=== PATIENT | female | born 1975 | race African-American/Black ===

== ENCOUNTER 2019-09-28 16:12 | Inpatient (IN) | payer OTHER ==
[~2019-09-28] VITALS: Ht 170.2 cm; Wt 81.2 kg
[2019-09-28 16:13] VITALS: BP 192/102
--- NOTE | 2019-09-28 16:51 | NUR ---
LAB PAGED FOR BLOOD DRAW.
[2019-09-28 18:15] LABS: ABSOLUTE NEUTROPHILS 6.9 thou/uL (1.4-8.2); BASOPHILS 0.9 % (0.0-2.0); EOSINOPHILS 3.7 % (0.0-3.0); HEMATOCRIT 30.9 % (37.0-47.0); HEMOGLOBIN 9.9 gm/dL (12.0-15.0); LYMPHOCYTES 11.1 % (24.0-44.0); MCH 26.1 pg (26.0-34.0); MCHC 32.2 g/dL (28.0-37.0); MONOCYTES 7.6 % (1.0-8.0); PLATELET COUNT 387 thou/uL (150-400); POLYS 76.7 % (36.0-66.0); RBC 3.81 mil/uL (4.20-5.00); RDW 17.3 % (10.5-14.5)
[2019-09-28 18:25] LABS: CALCIUM 9.2 mg/dL (8.5-10.1); CREATININE 2.9 mg/dL (0.6-1.0)
[2019-09-28 18:26] LABS: POTASSIUM 2.9 mmol/L (3.5-5.1)
[2019-09-28 18:31] LABS: TOTAL BILIRUBIN 0.2 mg/dL (<0.1-1.0); TOTAL PROTEIN 7.8 g/dL (6.4-8.2)
[2019-09-28 21:17] VITALS: BP 195/104
[2019-09-28 22:11] VITALS: BP 218/104
--- NOTE | 2019-09-29 02:09 | NUR ---
ASSUMED CARE FROM ED PT HAVING SEVERE N/S AND BP ELEVATED UPON ARRIVAL TO UNIT PT PLACED ON MACHINE BRUSH MAKER SHOWS ST 105 . ASSESSMENT COMPLETED ABD DATA BASE COMPLETED. SECOND IV PLACED TO ADMINISTER IV K+ . HOURLY SIGN LANGUAGE INTERPRETER OSMAR NOTIFED OF PT STATUS PT MEDICATED PRESCRIBED. PT HAVING MUCUS NAD WATERY STOOL , SAMPLE SEMT TO LAB. WILL CONINTUE TO MONITOR AND REPORT CHANGES OR ABNORMAL FINDINGS.
[2019-09-29 04:42] VITALS: BP 215/117
[2019-09-29 05:49] LABS: HEMATOCRIT 30.9 % (37.0-47.0); HEMOGLOBIN 9.7 gm/dL (12.0-15.0); MCH 25.8 pg (26.0-34.0); MCHC 31.4 g/dL (28.0-37.0); MCV 82.3 fL (80.0-100.0); RBC 3.76 mil/uL (4.20-5.00); RDW 16.9 % (10.5-14.5); WBC 7.6 thou/uL (4.0-11.0)
[2019-09-29 06:19] LABS: CALCIUM 8.6 mg/dL (8.5-10.1); CREATININE 2.7 mg/dL (0.6-1.0); POTASSIUM 3.5 mmol/L (3.5-5.1)
[2019-09-29 06:27] VITALS: BP 177/102
[2019-09-29 08:30] VITALS: BP 195/105
--- NOTE | 2019-09-29 10:58 | NUR ---
[facility] SPOKE WITH KAI IN INTAKE SHE RECEIVED UPDATE. DP TO FOLLOW.
[2019-09-29 13:00] VITALS: BP 164/97
--- NOTE | 2019-09-29 14:55 | NUR ---
AAOX4. SOMNOLENT. ST PER TELE. DR. MUHAMMAD SEES. HTN NOTED. LABS NOTED. CDT ISOLATION; CDT PENDING. WILL CONTINUE TO FOLLOW CLOSELY.
--- NOTE | 2019-09-29 16:09 | NUR ---
Met with patient she admits with N/V. Patient resides at home with aunt and her partner. All needs on one level. Someone is with patient during the day. Patient was at [facility]. She rec LBKA and transferred to [facility] at ar from hospital. She subsequently [facility], has been home approx one week. She [email or web address]. She reports nephrology phys just told her she may no longer need dialysis. She is hopeful to dc home with no dialysis needs. She has all DME from [facility] as needed. W/C walker and reports no need for sliding board. Patient plans dc home with HH once stable. Notified [facility] patient inpatient.
[2019-09-29 17:04] VITALS: BP 165/83
[2019-09-29 18:43] VITALS: BP 144/76
--- NOTE | 2019-09-30 04:41 | NUR ---
ASSESSMENT: PT REMAIN ALERT AND ORIENT TIMES FOUR. LEFT BKA INTACT. C/O PAIN IN ABD, LEG AND DIALYSIS CATH SITE. NORCO GIVEN WITH PARTIAL RELIEF. TESSION ESTHER ORDERED FOR DRY, HACKY COUGH. VSS, AFEBRILE. PADILLA PATENT WITH ADEQUATE UO. NO BM THIS SHIFT. 1030 VANCO TROUGH ORDERED FOR TODAY. SR PER MONITOR, SLOW PROGRESS TOWARDS DC GOALS, WILL CONTINUE TO MONITOR.
[2019-09-30 05:30] LABS: HEMOGLOBIN 8.6 gm/dL (12.0-15.0); MCH 26.4 pg (26.0-34.0); MCHC 31.8 g/dL (28.0-37.0); MCV 82.9 fL (80.0-100.0); RBC 3.25 mil/uL (4.20-5.00); RDW 16.8 % (10.5-14.5); WBC 6.5 thou/uL (4.0-11.0)
[2019-09-30 05:44] LABS: ALBUMIN 2.6 g/dL (3.4-5.0); CALCIUM 8.2 mg/dL (8.5-10.1); CREATININE 2.9 mg/dL (0.6-1.0); PHOSPHORUS 4.3 mg/dL (2.5-4.9); POTASSIUM 3.5 mmol/L (3.5-5.1)
[2019-09-30 07:15] VITALS: BP 181/99
--- NOTE | 2019-09-30 08:35 | HC ---
[facility] [address] [place] [address] CONSULTATION Name: NIKO MOREJON Room #: 202-P ADM IN M.R.#: [id number] Admission: 09/28/19 Attend Phys: Jared Garcia MD Discharge: Date of : 73 Report #: [id number] THIS REPORT FOR: //name// CC: [facility] physician/PCP Jared Garcia REASON FOR CONSULTATION: Requirement for dialysis. REASON FOR PRESENTATION: Nausea, vomiting. HISTORY OF PRESENT ILLNESS: A 44-year-old who has been on dialysis for the last month. She moved from [place]. The details of her renal history are not that great. She is known to be diabetic and hypertensive. She has left below-knee amputation due to osteomyelitis. She presented to the Emergency Room reporting nausea, vomiting, and diarrhea. She denies abdominal pain. She tells me that she had an acute kidney injury event while up [place] in [facility]. She was having issues with her left lower extremity osteomyelitis and had a left below-knee amputation and required dialysis ever since. She is utilizing a right IJ catheter. She last dialyzed on Friday. Transportation had not picked her up for her dialysis on Friday and she missed her dialysis on Friday. Surprisingly, her BUN and creatinine during this hospital stay showed the values of 23 and 2.7. She made about 750 mL of urine. PAST MEDICAL HISTORY: 1. Hypertension. 2. Diabetes mellitus for 20 years. 3. Left below-knee amputation. 4. Right IJ tunneled catheter. 5. Osteomyelitis of the left foot. SOCIAL HISTORY: She denies drug or alcohol abuse. FAMILY HISTORY: Significant for diabetes mellitus and hypertension. MEDICATIONS: The patient is not sure about her home medications and those have not been reconciled unfortunately. ALLERGIES: None. REVIEW OF SYSTEMS: GENERAL: Significant for weakness. No chills, but significant fever. CARDIOVASCULAR: No chest pain or palpitation. PULMONARY: No cough or hemoptysis. GASTROINTESTINAL: Significant for nausea, vomiting, and diarrhea. GENITOURINARY: Occasional urinary retention. [facility] [address] [place] [address] CONSULTATION Name: ARNAV MOREJONDARWIN Morocho Room #: 202-P [facility] IN M.R.#: [id number] Admission: 09/28/19 Attend Phys: Jared Garcia MD Discharge: Date of : 73 Report #: [id number] MUSCULOSKELETAL: No back pain, no morning stiffness. PHYSICAL EXAMINATION: GENERAL: She is alert, oriented, in no apparent distress. VITAL SIGNS: Blood pressure is 177/102, temperature is 37.1, pulse rate is 100. HEAD AND NECK: No jugular venous distention. There is a right IJ tunneled catheter. CHEST: No crackles. CARDIOVASCULAR: Regular with no rub detected. ABDOMEN: Soft, nontender with no hepatosplenomegaly. LOWER EXTREMITIES: Left below-knee amputation. LABORATORY VALUES: Revealed hemoglobin of 9.7. Sodium of 136 and potassium of 3.5, this was low at 2.9. BUN is 22, creatinine is 2.9. IMPRESSION AND PLAN: 1. Acute kidney injury. 2. Gastrointestinal illness. 3. Hypertensive urgency. 4. Hypokalemia. 5. Potassium has rectified. 6. Discontinue IV fluid. 7. Needs better blood pressure control. 8. The patient seems to be regaining her kidney function with some improvement in her renal parameters. No dialysis is indicated, pending further renal recovery. 9. Blood sugar control. 10. GI workup. <ELECTRONICALLY SIGNED> By: Fran Nolan MD 09/30/19 0835 0845 1203 Fran Nolan MD /nt
[2019-09-30 12:30] VITALS: BP 178/90
[2019-09-30 15:40] VITALS: BP 165/96
--- NOTE | 2019-09-30 17:49 | NUR ---
PT ALERT AND ORIENTED. HAD HIGH BP THIS SHIFT. DR. CARTWRIGHT NOTIFIED. ORDERS RECEIVED. PRN PAIN MED GIVEN WITH PARTIAL RELIEF. PT HAD NUMEROUS LOOSE STOOL THIS SHIFT. PRN IMMODIUM GIVEN. CRITICAL LAB RESULTS CALLED IN TO THE PHARMACY. ORDERS NOTED. WILL CONTINUE TO MONITOR.
[2019-09-30 20:30] VITALS: BP 168/90
[2019-09-30 22:06] VITALS: BP 173/92
--- NOTE | 2019-10-01 04:01 | NUR ---
PATIENT TRANSFERRED TO UNIT FROM CCU. DENIES N/V. C/O PAIN X1, MED GIVEN. ACCUCHECK WAS 155, 3 UNITS LISPRO GIVEN. HAS TESSIO OF DIALYSIS, M/W/F. HAS L BKA BUT GETS UP TO BSC WITH ASSIST OF ONE. SLEPT OFF AND ON DURING NIGHT.
[2019-10-01 04:10] VITALS: BP 159/78
[2019-10-01 06:55] LABS: ALBUMIN 2.4 g/dL (3.4-5.0); CALCIUM 8.3 mg/dL (8.5-10.1); PHOSPHORUS 4.5 mg/dL (2.5-4.9); POTASSIUM 3.2 mmol/L (3.5-5.1)
[2019-10-01 08:29] VITALS: BP 167/79
[2019-10-01] MEDS ORDERED: COZAAR100 MG PO (12:31)
[2019-10-01] MEDS ORDERED: NORVASC10 MG PO (12:31)
[2019-10-01] MEDS ORDERED: AUGMENTIN 875-1 EACH PO (12:32)
--- NOTE | 2019-10-01 13:44 | NUR ---
met with patient she is to dc home with resumed h[facility] with [facility]. she need [facility] van for home. dc process planner in process of arranging. She iwll alert Rn of timeframe. Verified address no further needs.
[2019-10-01 13:51] VITALS: BP 167/79
--- NOTE | 2019-10-01 14:22 | NUR ---
[facility]SUMMARY [facility] SPOKE WITH THERON IN INTAKE SHE WILL NOTIFY PT TIME OF VISIT. PT DID NOT HAVE TRANSPORT HOME SET UP TRANSPORT WITH [facility] WILL PICK PT UP AT 1600 TODAY.
--- NOTE | 2019-10-01 16:30 | NUR ---
Assumed care of pt at 0700. Pt a&ox4. Dialysis catheter removed by PELON zhang. SBA with walker to bedside commode. Prn pain meds administered per pt request. Transport arranged for pt to go home. Pt discharging with home health.
== END 2019-10-01 16:58 | disposition home health service (06) | DRG 682 ==
LOC: ER 16:12 → 2N 20:32 → EROBS 20:32 → 2N 21:16 → 4S 09-30 20:54
PROVIDERS: Emergency Medicine; Hospitalist; Nurse Practitioner Family; ADMIT Hospitalist
PROC: 0JPT3XZ Removal of Tunneled Vascular Access Device from Trunk Subcutaneous Tissue and Fascia, Percutaneous Approach (ICD-10-PCS; principal; 2019-10-01)
DX: N17.9 Acute kidney failure, unspecified (principal); J18.9 Pneumonia, unspecified organism; I12.0 Hypertensive chronic kidney disease with stage 5 chronic kidney disease or end stage renal disease; N18.6 End stage renal disease; E86.0 Dehydration; R33.9 Retention of urine, unspecified; Z99.2 Dependence on renal dialysis; E11.22 Type 2 diabetes mellitus with diabetic chronic kidney disease; E11.51 Type 2 diabetes mellitus with diabetic peripheral angiopathy without gangrene; I16.0 Hypertensive urgency; E87.6 Hypokalemia; Z86.73 Personal history of transient ischemic attack (TIA), and cerebral infarction without residual deficits; Z89.512 Acquired absence of left leg below knee; Z82.49 Family history of ischemic heart disease and other diseases of the circulatory system; Z83.3 Family history of diabetes mellitus; Z79.899 Other long term (current) drug therapy
CPT/HCPCS: 10081; 10102

== ENCOUNTER 2019-10-03 12:19 | Emergency (ER) | payer OTHER ==
[~2019-10-03] VITALS: Ht 170.2 cm; Wt 82.1 kg
[~2019-10-03 12:19] MED LIST: AUGMENTIN 875-1 EACH PO; COZAAR100 MG PO; NORVASC10 MG PO
[2019-10-03 13:44] LABS: CALCIUM 8.6 mg/dL (8.5-10.1); CREATININE 2.7 mg/dL (0.6-1.0); POTASSIUM 4.1 mmol/L (3.5-5.1)
[2019-10-03 13:49] LABS: ALBUMIN 2.6 g/dL (3.4-5.0); TOTAL BILIRUBIN 0.3 mg/dL (<0.1-1.0); TOTAL PROTEIN 6.8 g/dL (6.4-8.2)
[2019-10-03 14:06] LABS: ABSOLUTE NEUTROPHILS 3.2 thou/uL (1.4-8.2); BASOPHILS 1.1 % (0.0-2.0); EOSINOPHILS 0.5 % (0.0-3.0); HEMATOCRIT 32.1 % (37.0-47.0); HEMOGLOBIN 10.2 gm/dL (12.0-15.0); LYMPHOCYTES 29.8 % (24.0-44.0); MCH 25.5 pg (26.0-34.0); MCHC 31.7 g/dL (28.0-37.0); MCV 80.4 fL (80.0-100.0); MONOCYTES 10.2 % (1.0-8.0); PLATELET COUNT 330 thou/uL (150-400); POLYS 58.4 % (36.0-66.0); RBC 3.99 mil/uL (4.20-5.00); RDW 17.5 % (10.5-14.5); WBC 5.5 thou/uL (4.0-11.0)
[2019-10-03 14:20] LABS: MAGNESIUM 1.6 mg/dL (1.8-2.4); TROPONIN-I 0.06 ng/mL (<0.06)
[2019-10-03] MEDS ORDERED: ONDANSETRON HCL4 M2 PO (16:16)
[2019-10-03] MEDS ORDERED: CEFDINIR300 MG PO (16:16)
[2019-10-03] MEDS ORDERED: MUCINEX600 MG PO (16:17)
[2019-10-03 16:19] LABS: URINE BILIRUBIN NEGATIVE (Negative); URINE BLOOD 2+ (Negative); URINE CLARITY CLEAR; URINE COLOR YELLOW; URINE GLUCOSE-RANDOM* 1+ (Negative); URINE KETONES NEGATIVE (Negative); URINE LEUKOCYTES-REFLEX NEGATIVE (Negative); URINE NITRITE-REFLEX NEGATIVE (Negative); URINE PROTEIN (DIPSTICK) 3+ (Negative); URINE SPECIFIC GRAVITY 1.015 (1.005-1.035); URINE UROBILINOGEN 0.2 E.U./dl (0.2-1.0)
[2019-10-03 16:28] LABS: URINE RBC 0-2 Rare /HPF (0-2)
[2019-10-03 16:29] LABS: BACTERIA-REFLEX 1-9 Few /HPF (None Seen); CASTS None Seen /LPF (None Seen); CRYSTALS None Seen /LPF (None Seen); SQUAMOUS 0-3 Few /LPF (0-3); URINE WBC-REFLEX None Seen /HPF (0-5)
[2019-10-03 17:16] VITALS: BP 179/81
--- NOTE | 2019-10-04 15:00 | EKG ---
[place] [address] [facility] [place] [address] ELECTROCARDIOGRAM REPORT Name: PARKER MOREJONTRUNG Morocho Room #: DEP [facility]#: [id number] Admission: 10/03/19 Attend Phys: Discharge: 10/03/19 Date of : 73 Report #: [id number] THIS REPORT FOR: //name// [facility] ED Test Date: 2019-10-03 Test Time: 13:40:13 Pat Name: NIKO MOREJON Department: Room: Gender: F Customs Entry Clerk: paul : 1975 Requested By: Niranjan Cruz Order Number: [id number] MD: Pawel Stapleton Measurements Intervals [place] Rate: 102 P: 46 CO: 132 QRS: 105 QRSD: 96 T: 79 QT: 367 QTc: 479 Interpretive Statements Sinus tachycardia Right axis deviation Borderline low voltage, extremity leads No previous ECG available for comparison Electronically Signed On 10-04-2019 14:59:58 HEALTHCARE EDUCATOR by Pawel Stapleton [email or web address] <ELECTRONICALLY SIGNED> By: Pawel Stapleton MD 10/04/19 1459 1340 1340 Pawel Stapleton MD /STEF
[2019-10-05] MEDS ORDERED: PERCOCET 10-321 EAC1 PO (17:20)
[2019-10-06] MEDS ORDERED: K-DUR 20 MEQ T20 MEQ PO (12:04)
[2019-10-06] MEDS ORDERED: PROTONIX40 M2 PO (12:04)
[2019-10-06] MEDS ORDERED: REGLAN10 MG PO (12:04)
[2019-10-06] MEDS ORDERED: REGLAN 10 MG TA10 MG PO (12:04)
== END 2019-10-03 17:17 | disposition home or self-care (01) ==
LOC: ER 12:19
PROVIDERS: Physician Assistant
DX: J02.9 Acute pharyngitis, unspecified (principal); R10.84 Generalized abdominal pain; E11.22 Type 2 diabetes mellitus with diabetic chronic kidney disease; I12.0 Hypertensive chronic kidney disease with stage 5 chronic kidney disease or end stage renal disease; N18.6 End stage renal disease; Z99.2 Dependence on renal dialysis; Z86.73 Personal history of transient ischemic attack (TIA), and cerebral infarction without residual deficits; Z89.512 Acquired absence of left leg below knee

== ENCOUNTER 2019-10-08 12:07 | Emergency (ER) | payer OTHER ==
[~2019-10-08] VITALS: Ht 170.2 cm; Wt 81.7 kg
[~2019-10-08 12:07] MED LIST changes: +CEFDINIR300 MG PO; +K-DUR 20 MEQ T20 MEQ PO; +MUCINEX600 MG PO; +ONDANSETRON HCL4 M2 PO; +PERCOCET 10-321 EAC1 PO; +PROTONIX40 M2 PO; +REGLAN 10 MG TA10 MG PO; +REGLAN10 MG PO
[2019-10-08 14:15] LABS: ABSOLUTE NEUTROPHILS 5.7 thou/uL (1.4-8.2); BASOPHILS 1.3 % (0.0-2.0); EOSINOPHILS 2.4 % (0.0-3.0); HEMATOCRIT 31.9 % (37.0-47.0); HEMOGLOBIN 10.4 gm/dL (12.0-15.0); LYMPHOCYTES 27.3 % (24.0-44.0); MCHC 32.5 g/dL (28.0-37.0); MCV 79.9 fL (80.0-100.0); MONOCYTES 6.7 % (1.0-8.0); PLATELET COUNT 517 thou/uL (150-400); POLYS 62.3 % (36.0-66.0); RBC 3.99 mil/uL (4.20-5.00); RDW 17.2 % (10.5-14.5); WBC 9.2 thou/uL (4.0-11.0)
[2019-10-08 14:22] LABS: CALCIUM 8.3 mg/dL (8.5-10.1); CREATININE 2.1 mg/dL (0.6-1.0); POTASSIUM 3.9 mmol/L (3.5-5.1)
[2019-10-08 14:28] LABS: TOTAL BILIRUBIN 0.2 mg/dL (<0.1-1.0); TOTAL PROTEIN 6.1 g/dL (6.4-8.2)
[2019-10-08] MEDS ORDERED: MUCINEX600 MG PO (15:16)
[2019-10-08] MEDS ORDERED: COZAAR100 MG PO (15:16)
[2019-10-08] MEDS ORDERED: NORVASC10 MG PO (15:16)
[2019-10-08] MEDS ORDERED: ZOFRAN ODT4 MG PO (15:16)
[2019-10-08 16:30] VITALS: BP 185/90
== END 2019-10-08 16:30 | disposition home or self-care (01) ==
LOC: ER 12:07
PROVIDERS: Emergency Medicine
DX: I10 Essential (primary) hypertension (principal); R11.2 Nausea with vomiting, unspecified; E11.9 Type 2 diabetes mellitus without complications; Z86.73 Personal history of transient ischemic attack (TIA), and cerebral infarction without residual deficits; Z86.14 Personal history of Methicillin resistant Staphylococcus aureus infection; Z88.5 Allergy status to narcotic agent

== ENCOUNTER 2019-11-03 18:47 | Inpatient (IN) | payer OTHER ==
[~2019-11-03] VITALS: Ht 152.4 cm; Wt 89.7 kg
[~2019-11-03 18:47] MED LIST changes: +ZOFRAN ODT4 MG PO
[2019-11-03 18:48] VITALS: BP 157/81
[2019-11-03 20:50] LABS: ABSOLUTE NEUTROPHILS 6.5 thou/uL (1.4-8.2); BASOPHILS 0.6 % (0.0-2.0); EOSINOPHILS 2.7 % (0.0-3.0); HEMATOCRIT 25.1 % (37.0-47.0); LYMPHOCYTES 27.7 % (24.0-44.0); MCH 25.6 pg (26.0-34.0); MCHC 32.1 g/dL (28.0-37.0); MCV 79.8 fL (80.0-100.0); MONOCYTES 8.8 % (1.0-8.0); PLATELET COUNT 464 thou/uL (150-400); POLYS 60.2 % (36.0-66.0); RBC 3.14 mil/uL (4.20-5.00); RDW 18.2 % (10.5-14.5); WBC 10.8 thou/uL (4.0-11.0)
[2019-11-03 21:25] LABS: CALCIUM 7.9 mg/dL (8.5-10.1); CREATININE 2.3 mg/dL (0.6-1.0)
[2019-11-03 21:33] LABS: TOTAL BILIRUBIN 0.1 mg/dL (<0.1-1.0)
[2019-11-03 23:23] LABS: URINE BILIRUBIN NEGATIVE (Negative); URINE BLOOD TRACE (Negative); URINE CLARITY CLEAR; URINE COLOR YELLOW; URINE GLUCOSE-RANDOM* 1+ (Negative); URINE KETONES NEGATIVE (Negative); URINE LEUKOCYTES-REFLEX NEGATIVE (Negative); URINE NITRITE-REFLEX NEGATIVE (Negative); URINE PROTEIN (DIPSTICK) 3+ (Negative); URINE UROBILINOGEN 0.2 E.U./dl (0.2-1.0)
[2019-11-03 23:32] LABS: BACTERIA-REFLEX 1-9 Few /HPF (None Seen); CASTS None Seen /LPF (None Seen); CRYSTALS None Seen /LPF (None Seen); SQUAMOUS 0-3 Few /LPF (0-3); URINE RBC 0-2 Rare /HPF (0-2); URINE WBC-REFLEX None Seen /HPF (0-5)
--- NOTE | 2019-11-03 23:36 | NUR ---
MIDLINE PROCEDURE. RISK, BENEFITS, AND ALTERNATIVE TREATMENT DISCUSSED WITH THEPATIENT PRIOR TO THE PROCEDURE. TEACHING GIVEN RELATED TO POSSIBLE COMPLICATIONS SUCH BLEEDING, INFECTION, CLOT OR VESSEL PERFORATION. INSTRUCTION GIVEN RELATED TO PREVENTION OF INFECTION. PATIENT VOICES UNDERSTANDING TO THE ABOVE AND GIVES VERBAL CONSENT. ORDER VERIFIED WITH ED PHYSICIAN AND TIME OUT COMPLETED WITH TRESSA MCCARTHY AT 2100. MIDLINE PLACED TO RUE CEPHALIC VEIN. ONE STICK AND NO COMPLICATIONS. PATIENT TOLERATED WELL. MIDLINE TRIMMED TO 14 CM. AND EXTERNAL =0CM.
[2019-11-04 09:34] VITALS: BP 178/97
[2019-11-04 10:33] VITALS: BP 179/75
[2019-11-04 11:00] VITALS: BP 205/92
[2019-11-04 16:05] VITALS: BP 183/83
--- NOTE | 2019-11-04 16:32 | NUR ---
Patient admitted from ED at 1045. Patient admitted with Pneumionia and pain related to fall. Patient fell prior to coming to ED per EMS. She fell on her left total knee amputation which was completed in September,. STAT order of Clonidine 0.1mg po given for elevated blood pressure. Patient verbalized that her blood pressure "always runs high." She was asymptomatic with this hypertension. Patient has been tolerating IV Antibiotics well. She is upset because she has been placed on a Renal Diet. Will continue to monitor.
[2019-11-04 20:00] VITALS: BP 176/84
[2019-11-05 00:10] LABS: GLYCOHEMOGLOBIN (HGB A1C) 6.5 % (4.8-5.6)
--- NOTE | 2019-11-05 02:31 | NUR ---
ASSUMED CARE OF PT AT 1900HRS. PT IS AOX4 AND LETS NEEDS BE KNOWN. FALL PRECAUTION IN PLACE. ABX TREATMENT CONTINUED. PT REPORTED SOME PAIN AND PRN MEDS WERE USED. PT USED BTHE BEDPAIN THIS SHIFT. PT WAS ABLE TO GET COMFORTABLE AND SLEEP PART OF THE SHIFT. VSS AND NO S/S OF ACUTE DISTRESS. WILL CONTINUE TO MONITOR.
[2019-11-05 04:09] VITALS: BP 183/83
[2019-11-05 06:04] VITALS: BP 163/72
[2019-11-05 07:50] VITALS: BP 185/75
[2019-11-05 08:43] LABS: ABSOLUTE NEUTROPHILS 7.6 thou/uL (1.4-8.2); BASOPHILS 0.7 % (0.0-2.0); HEMATOCRIT 26.4 % (37.0-47.0); HEMOGLOBIN 8.5 gm/dL (12.0-15.0); LYMPHOCYTES 19.5 % (24.0-44.0); MCH 25.5 pg (26.0-34.0); MCHC 32.2 g/dL (28.0-37.0); MCV 79.3 fL (80.0-100.0); MONOCYTES 7.1 % (1.0-8.0); PLATELET COUNT 468 thou/uL (150-400); POLYS 69.7 % (36.0-66.0); RBC 3.33 mil/uL (4.20-5.00)
[2019-11-05 08:59] LABS: ALBUMIN 1.9 g/dL (3.4-5.0); CALCIUM 8.3 mg/dL (8.5-10.1); CREATININE 2.4 mg/dL (0.6-1.0); MAGNESIUM 1.7 mg/dL (1.8-2.4); POTASSIUM 4.6 mmol/L (3.5-5.1); TOTAL BILIRUBIN 0.2 mg/dL (<0.1-1.0); TOTAL PROTEIN 6.3 g/dL (6.4-8.2)
--- NOTE | 2019-11-05 10:23 | NUR ---
Pt admit d/t diarrhea, chills, cough. Previous fall at home and hematemesis. Hx T2DM, left BKA, CKD with previous hemodialysis, HTN, HLD. Admitted 1 month ago and had EGD w/ diabetic gastroparesis dx. GI following. CXR revealed PNA. Previous RD diet education on DM gastroparesis and included basic guidelines, but Pt denied full DM diet ed. Pt reports no desire or need for additional diet ed at this time. States following the diet guidelines at home or else she gets sick. Labs: Glucose 121-204, A1c 6.5%, altered LFTs. Meds: Lispro, IV Abx, Vit B12, probiotic. Microcytic anemia noted. PCM indicated from EMR and dietitian consulted. Weight increased from last admit wt of 184.2# on 09/28/19 to 197.7# this admit. Good appetite and intake at 100%. Considering reported adherence to DM gastroparesis diet at home, good appetite and intake, malnutrition not indicated at this time. Consider to be low nutritional risk.
[2019-11-05] MEDS ORDERED: CATAPRES0.1 MG PO (11:14)
[2019-11-05] MEDS ORDERED: COZAAR 50 MG TA50 M1 PO (11:14)
[2019-11-05] MEDS ORDERED: TRAMADOL 50 MG50 MG PO (11:14)
[2019-11-05] MEDS ORDERED: CEFUROXIME500 MG PO (11:14)
[2019-11-05] MEDS ORDERED: REGLAN 5 MG TAB5 MG PO (11:15)
[2019-11-05] MEDS ORDERED: ONDANSETRON HCL4 M2 PO (11:15)
--- NOTE | 2019-11-05 15:05 | NUR ---
PT ADMITTED RELATED TO Pneumonia, Recent fall with pain to [facility] (amputation 09/2018). CM REVIEWED CHART AND SPOKE WITH CARE TEAM. CM MET WITH PT AT BEDSIDE THIS DAY. PT IS A&O X4. CM ROLE INTRODUCED. PT INDICATED SHE LIVES IN A TOWNHOUSE WITH HER PARTNER WITH 2 TO ENTER AND NONE INSIDE. PT INDICATED SHE HAS A MANUAL WC AND A SHOWER CHAIR FOR HOME USE. PT DOESN'T HAVE HER WC HERE. PT INDICATED SHE HAS HCBS THROUGH [place] 2 HRS M- AND 3HRS FRIDAY. PT INDICATED SHE PLANS TO RETURN HOME ONCE MEDICALLY STABLE. PT INDICATED SHE DOESN'T ANTICPATED THAT SHE WILL NEED HH SERVICES UPON DC. PT REQUESTED HOUSING RESOURCES. CM TO FOLLOW INDICATED WITH DC PLANNING. SHOULD PT BE MEDICALLY STABLE TO DC OVER THE WEEKEND PT WILL NEED WC VAN TRANSPORT HOME CALL [facility] AT .
[2019-11-05 19:57] VITALS: BP 171/91
--- NOTE | 2019-11-05 20:06 | NUR ---
Patient continues to have Hypertension without symptoms. Hydralazine given as ordered. Blood sugars have improved since yesterday; 3 Units of coverage needed x's 2. Patient complained of "level nine" pain in LBKA. She has Tramadol and Acetaminophen prn, complained that she needs something stronger. Patient continues on Room Air with Breathing Treatments. She has been consuming 100% of all meals with adequate fluid intake. Report given to on-coming nurse.
--- NOTE | 2019-11-06 03:24 | NUR ---
PT IS A/O X4.PT COMPLAIN OF PAIN AND PAIN MANAGED WITH TRAMADOL.PT REQUESTED FOR SLEEPING MEDS AND ACCOUNT DEVELOPMENT ASSOCIATE SAIDE PAGED AND SHE ORDERED MELATONIN.PT A RUQ MIDLINE.PT IS ACCUCHECK ACHS.PT HAS A LT BKA .WILL CONTINUE TO MONITOR PER POC
[2019-11-06 06:33] LABS: ALBUMIN 1.8 g/dL (3.4-5.0); CALCIUM 8.3 mg/dL (8.5-10.1); CREATININE 2.5 mg/dL (0.6-1.0); POTASSIUM 5.1 mmol/L (3.5-5.1)
[2019-11-06 08:00] VITALS: BP 156/96
[2019-11-06 16:05] VITALS: BP 168/96
--- NOTE | 2019-11-06 19:02 | NUR ---
VSS-AFEBRILE. LUNGS DIMINISHED IN ALL MARTINEZ BILATERALLY, CONGESTED COUGH. OCCASIONAL ALL OVER BODY ACHES WELL CONTROLLED WITH PO TRAMADOL. DISCUSSED DC INSTRUCTIONS, VERBALIZED UNDERSTANDING OF ALL DISCUSSED MATERIALS. REMOVED PINKY MIDLINE IV PER ORDERS. ALL NEW PRESCRIPTIONS HAVE BEEN CALLED IN TO PHARMACY. LEFT UNIT IN WHEELCHAIR WITH TRANSPORT SERVICE AND ALL PERSONAL BELONGINGS.
== END 2019-11-06 18:39 | disposition home or self-care (01) | DRG 193 ==
LOC: ER 18:47 → 4W 23:43 → EROBS 23:43 → 4W 11-04 10:33
PROVIDERS: Emergency Medicine; Hospitalist; Nurse Practitioner; ADMIT Hospitalist
PROC: 05HD33Z Insertion of Infusion Device into Right Cephalic Vein, Percutaneous Approach (ICD-10-PCS; principal; 2019-11-03)
DX: J18.9 Pneumonia, unspecified organism (principal); N18.6 End stage renal disease; E46 Unspecified protein-calorie malnutrition; E11.43 Type 2 diabetes mellitus with diabetic autonomic (poly)neuropathy; K31.84 Gastroparesis; E11.22 Type 2 diabetes mellitus with diabetic chronic kidney disease; E11.51 Type 2 diabetes mellitus with diabetic peripheral angiopathy without gangrene; I12.9 Hypertensive chronic kidney disease with stage 1 through stage 4 chronic kidney disease, or unspecified chronic kidney disease; D63.8 Anemia in other chronic diseases classified elsewhere; Z86.14 Personal history of Methicillin resistant Staphylococcus aureus infection; Z86.73 Personal history of transient ischemic attack (TIA), and cerebral infarction without residual deficits; Z89.512 Acquired absence of left leg below knee; Z88.6 Allergy status to analgesic agent; Z87.891 Personal history of nicotine dependence; Z68.38 Body mass index [BMI] 38.0-38.9, adult
CPT/HCPCS: 10040; 27000

== ENCOUNTER 2019-11-26 06:44 | Inpatient (IN) | payer OTHER ==
[~2019-11-26] VITALS: Ht 170.2 cm; Wt 81.6 kg
[2019-11-26] VITALS (7 sets, daily range): BP systolic 120–216; BP diastolic 58–116
[~2019-11-26 06:44] MED LIST changes: +CATAPRES0.1 MG PO; +CEFUROXIME500 MG PO; +COZAAR 50 MG TA50 M1 PO; +HUMALOG100 UNIT/1 SUBQ; +LANTUS SUBQ; +REGLAN 5 MG TAB5 MG PO; +SODIUM BICARBO650 M3 PO; +TORSEMIDE20 MG PO; +TRAMADOL 50 MG50 MG PO
[2019-11-26] MEDS ORDERED: PERCOCET 5-3251 EACH PO (06:57)
[2019-11-26 07:59] LABS: ABSOLUTE NEUTROPHILS 9.8 thou/uL (1.4-8.2); BASOPHILS 0.8 % (0.0-2.0); EOSINOPHILS 2.2 % (0.0-3.0); HEMOGLOBIN 10.8 gm/dL (12.0-15.0); LYMPHOCYTES 15.9 % (24.0-44.0); MCH 25.2 pg (26.0-34.0); MCHC 31.9 g/dL (28.0-37.0); MCV 79.1 fL (80.0-100.0); MONOCYTES 4.2 % (1.0-8.0); POLYS 76.9 % (36.0-66.0); RBC 4.29 mil/uL (4.20-5.00); RDW 16.7 % (10.5-14.5); WBC 13.7 thou/uL (4.0-11.0)
[2019-11-26 08:13] LABS: ANION GAP 12 mmol/L (7-16); BUN 20 mg/dL (7-18); CALCIUM 9.2 mg/dL (8.5-10.1); CHLORIDE 107 mmol/L (98-107); CO2 19 mmol/L (21-32); CREATININE 2.4 mg/dL (0.6-1.0); GLUCOSE 212 mg/dL (74-106); SODIUM 138 mmol/L (136-145)
[2019-11-26 08:14] LABS: APTT 22.7 Seconds (24.5-32.8); POTASSIUM 3.5 mmol/L (3.5-5.1); PROTIME 9.5 Seconds (9.3-11.4)
[2019-11-26 08:24] LABS: ALBUMIN 1.9 g/dL (3.4-5.0); LIPASE 106 U/L (73-393); SGOT 17 U/L (15-37); SGPT 6 U/L (30-65); TOTAL BILIRUBIN 0.2 mg/dL (<0.1-1.0); TOTAL PROTEIN 6.3 g/dL (6.4-8.2); TROPONIN-I <0.06 ng/mL (<0.06)
--- NOTE | 2019-11-26 08:35 | NUR ---
UNABLE TO PLACE IV. BLOOD DRAWN. WAITING FOR IV TEAM TO ARRIVE TO PLACE IV AND ADMINISTER MEDICATION ORDERED. PROVIDER AWARE THAT PATIENT DOES NOT HAVE IV ACCESS AT THIS TIME. MEDS MANAGED IM AT THIS TIME.
[2019-11-26 08:44] LABS: URINE BILIRUBIN NEGATIVE (Negative); URINE BLOOD TRACE (Negative); URINE CLARITY CLEAR; URINE COLOR YELLOW; URINE GLUCOSE-RANDOM* 2+ (Negative); URINE KETONES NEGATIVE (Negative); URINE LEUKOCYTES-REFLEX NEGATIVE (Negative); URINE NITRITE-REFLEX NEGATIVE (Negative); URINE PROTEIN (DIPSTICK) 3+ (Negative); URINE UROBILINOGEN 0.2 E.U./dl (0.2-1.0)
[2019-11-26 08:48] LABS: PLATELET COUNT 322 thou/uL (150-400)
[2019-11-26 09:00] LABS: SQUAMOUS 4-10 Moderate /LPF (0-3)
[2019-11-26 09:01] LABS: BACTERIA-REFLEX 1-9 Few /HPF (None Seen); CASTS None Seen /LPF (None Seen); CRYSTALS None Seen /LPF (None Seen); URINE RBC 0-2 Rare /HPF (0-2); URINE WBC-REFLEX 0-5 Rare /HPF (0-5)
--- NOTE | 2019-11-26 09:29 | EKG ---
[facility] [place] [address] [place] [address] ELECTROCARDIOGRAM REPORT Name: NIKO MOREJON Room #: [facility]#: [id number] Admission: 11/26/19 Attend Phys: Discharge: Date of : 73 Report #: [id number] THIS REPORT FOR: cc: NO FAMILY PHYSICIAN or PCP FAM - No family physician/PCP Sheng Field MD [facility] THIS REPORT FOR: //name// [facility] ED Test Date: 2019-11-26 Test Time: 07:09:14 Pat Name: NIKO MOREJON Department: Room: Gender: Patrol Lady: [facility] : 1975 Requested By: Aj Turner Order Number: [id number] MD: Sheng Field Measurements Intervals [place] Rate: 106 P: 60 MO: 125 QRS: 79 QRSD: 98 T: 89 QT: 356 QTc: 473 Interpretive Statements Sinus tachycardia Nonspecific T abnormalities Compared to ECG 10/03/2019 23:02:08 Ventricular premature complex(es) no longer present Electronically Signed On 11-26-2019 9:27:55 CDT by Sheng Field [email or web address] <ELECTRONICALLY SIGNED> By: Sheng Field MD, FACC 11/26/19 0927 0709 Sheng Field MD, [facility] /EPI
[2019-11-26 13:07] LABS: AMP/METHAMP Negative (Negative); BARBITURATES Negative (Negative); BENZODIAZEPINES Negative (Negative); COCAINE Negative (Negative); METHADONE Negative (Negative); OPIATES Negative (Negative); PCP Negative (Negative)
--- NOTE | 2019-11-26 17:36 | NUR ---
PT ADMITTED FROM THE ER AT 1530. A&Ox4. PT HAD AN EGD THAT WAS UNFOUND. CONTINUES TO SLEEP AND COMPLAIN OF PAIN BUT LAYS IN BED VERY COMFORTABLE WITHOUT ANY MEDICATION. DOES NOT COMPLAIN OF ANY N/V. PT HAS A L. BKA AND USES A WHEELCHAIR AT HOME. ACHS WITH INSULIN COVERAGE. NONE NEEDED DURING MY SHIFT. ADMISSION COMPLEETE. IV PATENT WITH NO REDNESS OR EDEMA. FLUIDS INFUSING. FALL PROTOCOLL IN PLACE. CALL LIGHT WITHIN REACH. WILL CONTINUE TO MONITOR. FULL LIQUID DIET
[2019-11-27] VITALS (7 sets, daily range): BP systolic 164–182; BP diastolic 75–103
--- NOTE | 2019-11-27 00:09 | NUR ---
PT AOX4. PT REPORTS 7-8 IN ABDOMEN. PT RECEIVING PRN IV FENTANYL Q4HR. PT HAS X1 REPORT OF NAUSEA WITHOUT EMESIS. PERFORMED HYGIENE CARE, APPLIED FEMALE EXTERNAL CATHETER DUE TO PT REPORTING WEAKNESS AND OBSERVATION OF INCREASED EPISODES OF INCONTINENCE. PT TOLERATING PO INTAKE OF FULL LIQUID DIET WITHOUT ISSUE. PT ABLE TO REPOSITION IN BED INDEPENDENTLY. ENCOURAGED PT TO NOTIFY STAFF WITH ALL NEEDS. CALL LIGHT WITHIN REACH, BED ALARM ON, BED IN LOWEST POSITION. WILL CONTINUE TO MONITOR.
[2019-11-27 05:58] LABS: ABSOLUTE NEUTROPHILS 5.6 thou/uL (1.4-8.2); BASOPHILS 0.5 % (0.0-2.0); HEMATOCRIT 26.5 % (37.0-47.0); LYMPHOCYTES 26.8 % (24.0-44.0); MCHC 32.4 g/dL (28.0-37.0); MCV 80.2 fL (80.0-100.0); MONOCYTES 6.9 % (1.0-8.0); PLATELET COUNT 336 thou/uL (150-400); POLYS 63.8 % (36.0-66.0); RBC 3.31 mil/uL (4.20-5.00); WBC 8.7 thou/uL (4.0-11.0)
[2019-11-27 06:08] LABS: HEMOGLOBIN 8.6 gm/dL (12.0-15.0)
[2019-11-27 06:27] LABS: CALCIUM 7.7 mg/dL (8.5-10.1); CREATININE 2.5 mg/dL (0.6-1.0); MAGNESIUM 1.7 mg/dL (1.8-2.4); POTASSIUM 3.9 mmol/L (3.5-5.1)
--- NOTE | 2019-11-27 11:49 | NUR ---
PT CARE ASSUMED AT 0700. A&Ox4. PT SLEEPING COMFORTABLE ALL DAY. SHE IS WONDERING WHEN SHE CAN HAVE HER DIET ADVANCED. DR. MARCH IS AWARE OF THE DROP IN HGB AND HAS ORDERED A REDRAW AT NOON. PT WILL HAVE A COLONOSCOPY OUTPATIENT. PT EDUCATED ON THE IMPORTANCE OF DIABETIC CONTROLL AND GASTROPERISIS WITH DR. CHIANG. PT IS NOT TO HAVE ANY NARCOTICS DUE TO CONTRAINDICATION WITH HER GASTROPERISIS. IF PT TOLERATES ADVANCED DIET SHE CAN DISCHARGE. PT IS TO BE CONSULTED BY CALENDERING SUPERVISOR FOR DM MANAGMENT. FALL PROTOCOLL IN PLACE. CALL LIGHT IN REACH.
[2019-11-27 12:02] LABS: HEMATOCRIT 27.1 % (37.0-47.0); HEMOGLOBIN 8.9 gm/dL (12.0-15.0); MCH 26.3 pg (26.0-34.0); MCHC 32.9 g/dL (28.0-37.0); MCV 79.9 fL (80.0-100.0); RBC 3.39 mil/uL (4.20-5.00); RDW 17.1 % (10.5-14.5); WBC 10.2 thou/uL (4.0-11.0)
[2019-11-27 12:17] LABS: CALCIUM 8.2 mg/dL (8.5-10.1); CREATININE 2.4 mg/dL (0.6-1.0); MAGNESIUM 1.7 mg/dL (1.8-2.4); POTASSIUM 3.6 mmol/L (3.5-5.1)
--- NOTE | 2019-11-28 00:50 | NUR ---
PT LYING IN BED. VOIDING PER BEDPAN. DENIES NEED FOR PAIN MEDICATION. RESTING COMFORTABLY. NO NEEDS VOICED. CALL LIGHT WITHIN REACH. FREQUENT OBSERVATION.
[2019-11-28 07:58] VITALS: BP 168/74
[2019-11-28] MEDS ORDERED: REGLAN 10 MG TA10 MG PO (09:28)
[2019-11-28] MEDS ORDERED: LOPRESSOR25 PO (09:28)
--- NOTE | 2019-11-28 11:22 | NUR ---
ASSUMED CARE OF THE PT AT 0700. PT BS IS CONTROLLED BY INSULIN, SEE SLIDING SCALE AND EMAR. L WRIST IB DRY AND INTACT. PT USES BEDPAN. PER DOCTOR PT IS TO AVOID CAFFIENE, SMOKING AND NSAIDS, PT UNDERSTOOD. PAIN CONTROLLED BY PAIN MEDS, SEE EMAR. FALL PRECAUTIONS IN PLACE, BED IN THE LOWEST POSITION AND CAll LIGHT IS WITHIN REACH. WILL CONTINUE TO MONITOR THE PT.
--- NOTE | 2019-11-28 11:48 | HC ---
[facility] [place] [address] CONSULTATION Name: NIKO MOREJON Room #: 438-P ADM IN M.R.#: [id number] Admission: 11/26/19 Attend Phys: Jared Garcia MD Discharge: Date of : 73 Report #: [id number] THIS REPORT FOR: cc: NO FAMILY PHYSICIAN or PCP EDWIN - Maria Antonia family physician/PCP Kamlesh Hinds MD ~ CC: Candida PINEDA physician/PCP Jared ARGUETA PCP DATE OF SERVICE: 11/27/2019 ENDOCRINE CONSULTATION NOTE CONSULTING PHYSICIAN: Dr. Mares. REASON FOR CONSULTATION: Uncontrolled type 2 diabetes mellitus. HISTORY OF PRESENT ILLNESS: This is a 44-year-old female patient whose medical background is significant for type 2 diabetes mellitus, hypertension, chronic kidney disease, CVA as well as gastroparesis. The patient presented to our ER yesterday with complaints of intractable nausea, vomiting and reported hematemesis. It appears that the patient has been dealing with this outlook for the past several months and has had several admissions for the same issue. Again, the patient's background is significant for type 2 diabetes mellitus diagnosed over 20 years ago. Her course has been complicated by chronic kidney disease that culminated in the need for dialysis earlier this year. Fortunately, she improved to the point where she was able to come off dialysis as of 2 months ago. Also, the patient had an encounter with osteomyelitis resulting eventually left BKA in September of this year. She has healed well since then. Furthermore, the patient developed a complication of gastroparesis and has dealt with bouts of nausea and vomiting with occasional hematemesis. She has followup with Gastroenterology for the issue over the past few months. She has severe peripheral neuropathy that she had controlled for a while with gabapentin, but she had to discontinue this due to her kidney disease. The patient's home regimen consists of Lantus insulin 50 units daily. She was initially on Humalog insulin scheduled for meals, but stopped taking it completely over the past few months due to her minimal fluid intake and active issues with gastroparesis. With Lantus monotherapy, the patient has done well and reports blood glucose values that are mostly in the low to mid 100 mg/dL range without severe hyperglycemic or hypoglycemic excursions. The patient is hypertensive and is maintained on a combination of clonidine, [address] [address] CONSULTATION Name: ARNAV MOREJONDARWIN Morocho Room #: 438-P [facility] IN ..#: [id number] Admission: 11/26/19 Attend Phys: Jared Garcia MD Discharge: Date of : 73 Report #: [id number] losartan and furosemide. REVIEW OF SYSTEMS: CONSTITUTIONAL: Fatigue, tiredness, but not fever or chills or body weight changes. HEENT: Negative for sore throat, sinus pain, ear drainage. PULMONARY: No shortness of breath, cough or hemoptysis. CARDIAC: Occasional palpitations. No chest pain, no syncope or presyncope. GASTROINTESTINAL: Gastroparesis at baseline and intermittent active difficulties with nausea, vomiting and hematemesis including prior to this presentation. NEUROLOGY: Baseline severe peripheral neuropathy due to diabetes. No seizure activity, loss of consciousness or severe frequent headaches. PSYCHIATRIC: Negative for delusions, hallucinations. SKIN: Negative for ulceration, discoloration or rash. Otherwise, review of systems noncontributory unless mentioned in HPI. PAST MEDICAL HISTORY: 1. Type 2 diabetes mellitus. 2. Chronic kidney disease with history of end-stage renal disease requiring hemodialysis, which was stopped 2 months ago. 3. Peripheral vascular disease, status post left BKA in 10/04/2019. 4. Peripheral diabetic neuropathy. 5. Hypertension. 6. CVA. 7. History of osteomyelitis. 8. Gastroparesis. OUTPATIENT MEDICATIONS: Include Protonix 40 mg daily, clonidine 0.1 mg b.i.d., losartan 50 mg b.i.d., tramadol 50 mg q.6 hours p.r.n., Reglan 5 mg t.i.d., Zofran 5 mg p.o. q. 4 hours p.r.n., Lantus insulin 50 units at bedtime, torsemide 40 mg b.i.d. ALLERGIES: CODEINE. FAMILY HISTORY: Noncontributory. SOCIAL HISTORY: The patient smokes cigarettes occasionally, smokes weed occasionally. Does not drink alcohol. PHYSICAL EXAMINATION: GENERAL: [place] female patient who is not in apparent pain or distress. VITAL SIGNS: Blood pressure is 182/103 mmHg, heart rate is 95 beats per minute, respiration 18 per minute, temperature 37.1 degrees. CONSTITUTIONAL: The patient is lying in bed, seems comfortable, not in active pain or distress. [address] [address] CONSULTATION Name: NIKO MOREJON Room #: 438-P [facility] IN M.R.#: [id number] Admission: 11/26/19 Attend Phys: Jared Garcia MD Discharge: Date of : 73 Report #: [id number] HEENT: Anicteric sclerae. Intact extraocular motions. NECK: Supple, without JVD, carotid bruits or lymphadenopathy. I do not appreciate thyromegaly. CHEST: Noted for moderate air entry bilaterally with scattered rales and rhonchi. HEART: Regular rate and rhythm without murmurs or gallops. ABDOMEN: Soft, lax. No guarding. Active bowel sounds. EXTREMITIES: Lower extremity exam is noted for left BKA well healed stump. No edema over the right ankle. Pedal pulses are appreciated. Sensation to light touch is moderately diminished. NEUROLOGIC: Awake, alert and oriented to time, place and person. The remainder of her examination is noted for sensory deficit over the lower extremity. PSYCHIATRIC: Pleasant, interactive. Normal mood and affect. LABORATORY VALUES: Blood glucose values have ranged between 129 and 169 mg/dL since arrival. Otherwise, sodium 135, potassium 3.6, chloride 107, CO2 19, anion gap 9, BUN 19, creatinine 2.4, AST 17, lipase 106. Total bilirubin 0.2, calcium 8.2, phosphorus 4.0, magnesium 1.7, alkaline phosphatase 77, ALT 6, total protein 6.3, albumin 1.9. EGFR 26. Iron 30. White blood count 10.2, hemoglobin 8.9, hematocrit 27.1, platelets 344. Hemoglobin A1c on 11/03/2019, 6.5%. Vitamin D on 11/03/2019 was nondetectable at 5. ASSESSMENT AND PLAN: 1. Type 2 diabetes mellitus. While the patient had a fairly complicated diabetic course, namely in the sense of developing severe peripheral vascular disease, culminating in a left BKA as well as advanced chronic kidney disease requiring hemodialysis at some point along with severe peripheral neuropathy, the patient has developed a fairly adequate level of control over the past few months on Lantus monotherapy at a dose of 50 units daily. This was implemented during this hospital stay and the patient managed to maintain a consistent well within target blood glucose values. This is also reflected by her recent hemoglobin A1c of 6.5%. Given this stability, I would like to maintain the same regimen without changes as well as maintain coverage with Humalog supplemental scale low intensity for use as necessary as we continue to monitor her blood glucose values a.c. and at bedtime. 2. Gastroparesis. This has been occurring and worsening issue over the past several months and is the primary reason for her admission. Unfortunately, the best we could do is try to help the patient with motility agents, which she is currently on in the form of Reglan as well as antiemetics, which is currently on in the form of Zofran as well as PPIs. She was urged to maintain her followup with her senior gamemaster at [facility]. 3. Chronic kidney disease. The patient has chronic kidney disease, at least stage III as she was fortunate enough to be able to come off hemodialysis, which she needed for a few months. She is under the care of [place] [address] CONSULTATION Name: NIKO MOREJON Room #: 438-P [facility] IN M.R.#: [id number] Admission: 11/26/19 Attend Phys: Jared Garcia MD Discharge: Date of : 73 Report #: [id number] the importance of maintaining blood glucose and blood pressure control in order to avoid further advancement of chronic kidney disease, which she seems to understand well. 4. Hypertension. The patient has had a historic difficulties maintaining adequate blood pressure control. She is currently on a regimen of clonidine 0.1 mg b.i.d., Demadex 40 mg b.i.d. and hydralazine as needed as well as losartan 50 mg b.i.d. and metoprolol 25 mg b.i.d. Blood pressure control remains elusive. She is under the care of Dr. Nolan and I will defer further adjustments of this to him and the primary hospital team. I certainly appreciate this consultation by Dr. Mares. <ELECTRONICALLY SIGNED> By: Kamlesh Hinds MD 11/28/19 1148 1414 2204 Kamlesh Hinds MD /nt
[2019-11-28] MEDS ORDERED: LANTUS SUBQ (12:11)
[2019-11-28] MEDS ORDERED: HUMALOG100 UNIT/1 SUBQ (12:11)
[2019-11-28] MEDS ORDERED: PANTOPRAZOLE SO40 M1 PO (12:13)
[2019-11-28 13:56] VITALS: BP 168/74
[2019-11-28 13:58] VITALS: BP 168/74
== END 2019-11-28 14:00 | disposition home or self-care (01) | DRG 73 ==
LOC: ER 06:44 → EROBS 12:36 → 4S 16:07
PROVIDERS: Emergency Medicine; Nurse Practitioner; Specialist; ADMIT Hospitalist
DX: E11.43 Type 2 diabetes mellitus with diabetic autonomic (poly)neuropathy (principal); E43 Unspecified severe protein-calorie malnutrition; N18.6 End stage renal disease; K92.0 Hematemesis; M86.8X8 Other osteomyelitis, other site; I12.0 Hypertensive chronic kidney disease with stage 5 chronic kidney disease or end stage renal disease; E11.51 Type 2 diabetes mellitus with diabetic peripheral angiopathy without gangrene; K31.84 Gastroparesis; E86.0 Dehydration; E11.22 Type 2 diabetes mellitus with diabetic chronic kidney disease; E11.65 Type 2 diabetes mellitus with hyperglycemia; I16.0 Hypertensive urgency; D63.8 Anemia in other chronic diseases classified elsewhere; F12.90 Cannabis use, unspecified, uncomplicated; E11.42 Type 2 diabetes mellitus with diabetic polyneuropathy; E11.69 Type 2 diabetes mellitus with other specified complication; Z79.4 Long term (current) use of insulin; Z86.73 Personal history of transient ischemic attack (TIA), and cerebral infarction without residual deficits; Z89.512 Acquired absence of left leg below knee; Z88.6 Allergy status to analgesic agent; Z68.28 Body mass index [BMI] 28.0-28.9, adult; Z87.891 Personal history of nicotine dependence
CPT/HCPCS: 10195; 62110; 62900; 70005

== ENCOUNTER 2019-12-01 03:31 | Inpatient (IN) | payer OTHER ==
[~2019-12-01] VITALS: Ht 170.2 cm; Wt 89.8 kg
[~2019-12-01 03:31] MED LIST changes: +LOPRESSOR25 PO; +PANTOPRAZOLE SO40 M1 PO; +PERCOCET 5-3251 EACH PO
[2019-12-01 03:32] VITALS: BP 188/107
[2019-12-01 04:27] LABS: HEMATOCRIT 30.8 % (37.0-47.0); HEMOGLOBIN 9.7 gm/dL (12.0-15.0); MCH 24.9 pg (26.0-34.0); MCHC 31.4 g/dL (28.0-37.0); MCV 79.2 fL (80.0-100.0); RBC 3.88 mil/uL (4.20-5.00); RDW 17.2 % (10.5-14.5); WBC 12.7 thou/uL (4.0-11.0)
[2019-12-01 04:43] LABS: APTT 26.3 Seconds (24.5-32.8); PROTIME 9.7 Seconds (9.3-11.4)
[2019-12-01 04:47] LABS: ANION GAP 14 mmol/L (7-16); BUN 25 mg/dL (7-18); CALCIUM 8.1 mg/dL (8.5-10.1); CHLORIDE 109 mmol/L (98-107); CO2 17 mmol/L (21-32); CREATININE 2.8 mg/dL (0.6-1.0); GLUCOSE 196 mg/dL (74-106); POTASSIUM 3.7 mmol/L (3.5-5.1); SODIUM 140 mmol/L (136-145)
[2019-12-01 04:52] LABS: TROPONIN-I <0.06 ng/mL (<0.06)
[2019-12-01 04:58] LABS: URINE BILIRUBIN NEGATIVE (Negative); URINE BLOOD TRACE (Negative); URINE CLARITY CLEAR; URINE COLOR YELLOW; URINE GLUCOSE-RANDOM* 2+ (Negative); URINE KETONES NEGATIVE (Negative); URINE LEUKOCYTES-REFLEX NEGATIVE (Negative); URINE NITRITE-REFLEX NEGATIVE (Negative); URINE PROTEIN (DIPSTICK) 3+ (Negative); URINE UROBILINOGEN 0.2 E.U./dl (0.2-1.0)
[2019-12-01 05:10] LABS: AMP/METHAMP Negative (Negative); BARBITURATES Negative (Negative); BENZODIAZEPINES Negative (Negative); COCAINE Negative (Negative); METHADONE Negative (Negative); OPIATES Negative (Negative); PCP Negative (Negative)
[2019-12-01 05:41] LABS: BACTERIA-REFLEX 1-9 Few /HPF (None Seen); CASTS None Seen /LPF (None Seen); CRYSTALS None Seen /LPF (None Seen); MUCUS 4-6 Moderate strn/LPF (None Seen); SQUAMOUS 0-3 Few /LPF (0-3); URINE RBC 0-2 Rare /HPF (0-2); URINE WBC-REFLEX 0-5 Rare /HPF (0-5)
[2019-12-01 06:40] VITALS: BP 178/89
--- NOTE | 2019-12-01 06:45 | NUR ---
CHILDCARE TEACHER CALLED TO GIVE PT REPORT TO INPATIENT NURSE, WAS TOLD STAFF WERE IN THE MIDDLE OF [place] AND WILL RETURN CALL [place].
[2019-12-01 07:34] VITALS: BP 142/71
[2019-12-01 11:48] VITALS: BP 209/94
[2019-12-01 15:45] VITALS: BP 157/79
--- NOTE | 2019-12-01 18:49 | NUR ---
PT DOES NOT HAVE PROSTHESIS SO SHE IS CONFINED TO BED AND ONLY UP WITH ASSIST...FALL PREC IN PLACE..
[2019-12-01 19:32] VITALS: BP 153/74
--- NOTE | 2019-12-01 22:47 | NUR ---
PT RESTING IN BED TALKING ON PHONE. PT HAS LOOSE BARKING COUGH. PT REPORTS L SIDED WEAKNESS ARM AND LEG. PT NOTED TO HAVE DECREASED NETWORK DESKTOP SUPPORT SPECIALIST AND RESISTANCE, HOWEVER PT IS USING HER L HAND TO HOLD PHONE AND PULL IN BEDSIDE TABLE. PT REQUESTED HS SNACK AND PRN FOR PAIN AND PROVIDED. PT VERBALIZING SHE DOES NOT LIKE HER EJ IV AND WANTS TO PULL IT OUT. PT HAD BM, BS DECREASED. PT CALLING FOR ASSISTANCE WITH [employer]. ALARM ON.
[2019-12-02] VITALS (10 sets, daily range): BP systolic 181–190; BP diastolic 84–93
--- NOTE | 2019-12-02 07:46 | EKG ---
[facility] [place] [address] ELECTROCARDIOGRAM REPORT Name: NIKO MOREJON Room #: 361-P ADM IN M.R.#: [id number] Admission: 12/01/19 Attend Phys: Jared Garcia MD Discharge: Date of : 73 Report #: [id number] THIS REPORT FOR: cc: [facility] - Clinic physician unknown [facility] - Clinic physician unknown Sheng Field MD [facility] THIS REPORT FOR: //name// [facility] ED Test Date: 2019-12-01 Test Time: 03:51:18 Pat Name: NIKO MOREJON Department: Room: [facility] Gender: F [employer]: : 1975 Requested By: David Davila Order Number: [id number] MD: Sheng Field Measurements Intervals [place] Rate: 99 P: -10 [place]: 158 QRS: 94 QRSD: 91 T: 101 QT: 363 QTc: 466 Interpretive Statements Sinus rhythm Borderline right axis deviation Borderline T abnormalities, lateral leads Compared to ECG 11/26/2019 07:09:14 Sinus tachycardia no longer present Electronically Signed On 12-02-2019 7:45:13 CDT by Sheng Field [email or web address] <ELECTRONICALLY SIGNED> By: Sheng Field MD, [facility] 12/02/19 0745 0351 0351 Sheng Field MD, [facility] /EPI
--- NOTE | 2019-12-02 15:36 | NUR ---
INITIAL ASSESSMENT/DISCHARGE NOTE: Received consult due to pt needing transportation home. SW reviewed chart and spoke with nursing and attending physician. Pt was admitted from home due to possible seizure activity. Pt was recently hospitalized at [facility] and discharged home on 11/27. Pt with hx of left BKA and CVA. Pt has a w/c at home. Pt has Medicaid in-home services daily. Wheelchair van transportation to be scheduled when pt is discharged home. Transportation approved by Director of Case Management. MARIA ISABEL is available to assist as needed with discharge planning. [employer]-- ([facility] to pay for transportation)
--- NOTE | 2019-12-02 16:47 | HC ---
[facility] [place] [address] CONSULTATION Name: NIKO MOREJON Room #: 361-P ADM IN M.R.#: [id number] Admission: 12/01/19 Attend Phys: Jared Garcia MD Discharge: Date of : 73 Report #: [id number] THIS REPORT FOR: cc: [facility] - Clinic physician unknown [facility] - Clinic physician unknown Lorenzo Vyas MD ~ CC: [facility] unknown Jared Garcia DATE OF SERVICE: 12/01/2019 HISTORY OF PRESENT ILLNESS: This is a 44-year-old patient who was seen by me for seizure. She does not remember anything about that, but was told that she had jerking movement followed by a postictal period of confusion, which lasted for a few minutes. She is a diabetic, but is not certain what her blood sugar was when it happened. Clinically, her creatinine is high. She used to be on hemodialysis, but then for some reason, the kidney function improved according to the patient. REVIEW OF SYSTEMS: Indicates she is a diabetic. She has a history of gastroparesis. She does have a time when blood sugar goes down, but it does not go in 20s or 30s stays in about 70s according to the patient. She does have a history of hypertension rather blood pressure was high when she was here. Prior history of nausea and vomiting is present, but presently no history of nausea or vomiting is present. She does have a history of uncontrolled hypertension, pneumonia, peripheral vascular disease was on dialysis at one time. She has an amputation of the left leg that is her baseline. PAST MEDICAL HISTORY: Positive for kidney problems. FAMILY HISTORY: Unremarkable. SOCIAL HISTORY: She says she does not drink any alcohol. PHYSICAL EXAMINATION: GENERAL: Indicate the patient is alert and responsive, oriented, able to follow simple and complex command. NEUROLOGIC: Cranial nerve examination somewhat difficult to carry out especially the visual field, but she moves both sides. She has an amputation on the left side. Pulses are difficult to feel, but appeared to be present. Position sense is present. I cannot look at the fundus. CARDIAC: Examinations appear unremarkable. LUNGS: No respiratory difficulty was noticed. VITAL SIGNS: Blood pressure is 157/79, respirations 20, pulse is 71, and temperature is 98, at one time blood pressure was 207. [address] [address] CONSULTATION Name: NIKO MOREJON Room #: 361-P [facility] IN .R.#: [id number] Admission: 12/01/19 Attend Phys: Jared Garcia MD Discharge: Date of : 73 Report #: [id number] IMAGING STUDIES: She did have a CT scan of the head, which would appears unremarkable except for the possibility of a small stroke. LABORATORY DATA: Indicate a white count of 12.7. IMPRESSION: This patient appeared to have a seizure, but I am not certain it was epileptic seizure. We do not know what the blood pressure was. We do not know what the blood sugar was at that time. I discussed that with the patient and I told her that we have two options, one go on anticonvulsant, secondly what the blood sugar and see if it happens again. She wants to follow the second approach, and she is still need to take seizure precautions, which were discussed with her and she cannot drive for at least 6 months. She understands that. All of it was discussed with the patient in detail. We will look at the MRI. I will do only a noncontrast MRI of the brain because of her being on hemodialysis in the past and because of high creatinine. About 50 minutes of time was spent taking care of this patient today and majority of the time was spent counseling and coordinating. <ELECTRONICALLY SIGNED> By: Lorenzo Vyas MD 12/02/19 1647 1701 29 Lorenzo Vyas MD /nt
--- NOTE | 2019-12-02 16:47 | EEG ---
[facility] [place] [address] ELECTROENCEPHALOGRAM Name: NIKO MOREJON Room #: 361-P ADM IN M.R.#: [id number] Admission: 12/01/19 Attend Phys: Jared Garcia MD Discharge: Date of : 73 Report #: [id number] THIS REPORT FOR: //name// CC: FAM unknown Jared Garcia DATE OF SERVICE: 12/01/2019 This patient is being evaluated for the possibility of seizure. EEG was done by placing the electrode by standard 10-20 system of electrode placement. Both referential and sequential montages were used for recording. Background activity in this patient's EEG is about 9 Hz and 30 microvolts. The patient's EEG is intermixed with some theta range slowing. He went to sleep that is associated with bilateral slowing. Photic stimulation is unremarkable. Throughout the record, no active epileptiform activity was noticed. IMPRESSION: This EEG is slightly intermixed with theta range slowing on both sides. That is a nonspecific abnormality, which can occur with drowsiness, effect of psychotropic medications, some encephalopathy, etc. No active epileptiform activity was noticed during this record. Thank you very much for this referral. <ELECTRONICALLY SIGNED> By: Lorenzo Vyas MD 12/02/19 1647 1412 1425 Lorenzo Vyas MD /nt
--- NOTE | 2019-12-02 19:29 | NUR ---
ASSUMED CARE APPROX 0700. PER DR. RIZO PT IS TO SCHEDULE APPT WITH HIM FOR A TWO WEEK FOLLOW-UP. PT ADVISED TO START ASPIRIN 81MG ONCE DAILY. SHE VERABLIZED UNDERSTANDING REGARDING DRIVING RESTRICTIONS. SHE IS NOT TO DRIVE FOR 6 MONTHS. SHE WILL SCHEDULE AN APPT WITH HER PCP FOR LAB WORK AND MRI/MRA. PT REMOVED FROM TELE MONITOR PER ORDERS. IV REMOVED FROM RIGHT EXTERNAL JUGULAR PER ORDERS. TRANSPORTATION SERVICES HAVE BEEN CONTACTED AND SHOULD ARRIVE APPROX 1945. PT DRESSED AND BELONGINGS ARE IN HER POSSESSION.
== END 2019-12-02 19:37 | disposition home or self-care (01) | DRG 100 ==
LOC: ER 03:31 → EROBS 06:19 → 3W 06:19
PROVIDERS: Emergency Medicine; ADMIT Hospitalist
DX: R56.9 Unspecified convulsions (principal); E43 Unspecified severe protein-calorie malnutrition; N18.6 End stage renal disease; I12.0 Hypertensive chronic kidney disease with stage 5 chronic kidney disease or end stage renal disease; E11.22 Type 2 diabetes mellitus with diabetic chronic kidney disease; E11.43 Type 2 diabetes mellitus with diabetic autonomic (poly)neuropathy; K31.84 Gastroparesis; D63.8 Anemia in other chronic diseases classified elsewhere; Z86.14 Personal history of Methicillin resistant Staphylococcus aureus infection; Z86.73 Personal history of transient ischemic attack (TIA), and cerebral infarction without residual deficits; Z89.512 Acquired absence of left leg below knee; Z88.6 Allergy status to analgesic agent; Z87.891 Personal history of nicotine dependence; Z68.31 Body mass index [BMI] 31.0-31.9, adult
CPT/HCPCS: 10879

== ENCOUNTER 2020-01-21 19:35 | Emergency (ER) | payer OTHER ==
[~2020-01-21] VITALS: Ht 170.2 cm; Wt 83.0 kg
[2020-01-21 21:10] LABS: ABSOLUTE NEUTROPHILS 8.4 thou/uL (1.4-8.2); BASOPHILS 0.7 % (0.0-2.0); EOSINOPHILS 1.8 % (0.0-3.0); HEMATOCRIT 29.6 % (37.0-47.0); HEMOGLOBIN 9.7 gm/dL (12.0-15.0); LYMPHOCYTES 16.3 % (24.0-44.0); MCH 26.1 pg (26.0-34.0); MCHC 32.6 g/dL (28.0-37.0); MONOCYTES 6.4 % (1.0-8.0); PLATELET COUNT 353 thou/uL (150-400); POLYS 74.8 % (36.0-66.0); RDW 16.2 % (10.5-14.5); WBC 11.2 thou/uL (4.0-11.0)
[2020-01-21 21:23] LABS: CALCIUM 8.4 mg/dL (8.5-10.1); CREATININE 3.6 mg/dL (0.6-1.0); POTASSIUM 3.9 mmol/L (3.5-5.1); TOTAL BILIRUBIN 0.1 mg/dL (<0.1-1.0)
[2020-01-22 03:29] VITALS: BP 173/86
== END 2020-01-22 03:41 | disposition home or self-care (01) ==
LOC: ER 19:35
PROVIDERS: Emergency Medicine
DX: E11.43 Type 2 diabetes mellitus with diabetic autonomic (poly)neuropathy (principal); K31.84 Gastroparesis; R11.2 Nausea with vomiting, unspecified; E11.51 Type 2 diabetes mellitus with diabetic peripheral angiopathy without gangrene; I12.0 Hypertensive chronic kidney disease with stage 5 chronic kidney disease or end stage renal disease; E11.22 Type 2 diabetes mellitus with diabetic chronic kidney disease; N18.6 End stage renal disease; Z99.2 Dependence on renal dialysis; Z89.512 Acquired absence of left leg below knee; Z86.73 Personal history of transient ischemic attack (TIA), and cerebral infarction without residual deficits; Z86.14 Personal history of Methicillin resistant Staphylococcus aureus infection; Z79.899 Other long term (current) drug therapy; Z79.4 Long term (current) use of insulin; Z88.5 Allergy status to narcotic agent

== ENCOUNTER 2021-06-10 15:18 | Emergency (ER) | payer OTHER ==
[~2021-06-10] VITALS: Ht 170.2 cm; Wt 88.5 kg
--- NOTE | ~2021-06-10 | EMS ---
[address] [address] EMS Patient Care Report Name: NIKO MOREJON Room #: DEP Briseida#: [id number] Admission: 06/10/21 Attend Phys: Discharge: 06/10/21 Date of : 73 Report #: [id number] THIS REPORT FOR: //name// Report Transmitted: 06/11/2021 12:51 EMS Care Summary [place], [place]/[facility] Incident [id number] @ 06/10/2021 14:19 Incident [id number] [place] [address] [address] NIKO MOREJON Female, 46 Years 1975 Patient Address [id number] [place] [address] [address] [place] [address] Patient History Hyperlipidemia,End Stage Renal Disease (ESRD),Anemia,Sepsis,Peripheral Vascular Disease,Glaucoma,Schizoaffective Disorder, Patient Allergies No known allergies, Patient Medications Aripiprazole, Amlodipine, Acetazolamide, Carvedilol, Atorvastatin, Aspirin, Chief Complaint Bad labs Disposition Transported No Lights/[place] Dispatch Reason Sick Person Transported To [facility] Narrative Picked up patient at [facility]. Was told by staff that the patients doctor ordered to be taken to the ER because of her lab results. Staff couldn't [address] [address] EMS Patient Care Report Name: NIKO MOREJON Room #: DEP MALIK Goins#: [id number] Admission: 06/10/21 Attend Phys: Discharge: 06/10/21 Date of : 73 Report #: [id number] give a description of what was wrong with the lab results or a true description of the patient complaint. Patient had no complaints of pain or discomfort. No change in vitals throughout transport. Patient wouldn't provide any personal information and continued to talk on the phone. Patient became irritated when was informed that [facility] was only takin stroke, stemi, and trauma patients. Initial Vitals @14:42P: 108,R: 60,BP: 136/71,Pain: 0/10,GCS: 15,SpO2: 98,Revised Trauma: 11, Assessments @14:45MENTAL:Person Oriented,Time Oriented,Place Oriented,Event Oriented,SKIN:HEENT:LUNG SOUNDS:Left Upper: No Abnormalities,Right Upper: No Abnormalities,Left Lower: No Abnormalities,Right Lower: No Abnormalities,ABDOMEN:Left Upper: No Abnormalities,Right Upper: No Abnormalities,Left Lower: No Abnormalities,Right Lower: No Abnormalities,PELVIS//GI:No Abnormalities,EXTREMITIES:Capillary Refill: Right Upper: < 2 Sec,Capillary Refill: Left Upper: < 2 Sec,Left Leg: Paralysis,Right Leg: Paralysis,Left Arm: No Abnormalities,Right Arm: No Abnormalities,PULSE:Brachial: 2+ Normal,NEURO:No Abnormalities, Impression Generalized Weakness Procedures @14:45BLS AssessmentResponse: Unchanged Timeline 14:18,Call Received 14:18,Dispatch Notified 14:19,Dispatched 14:20,En Route 14:31,On Scene 14:33,At Patient 14:42,BP: 136/71 M,PULSE: 108,RR: 60 R,SPO2: 98 Ox,ETCO2: ,BG: ,PAIN: 0,GCS: 15, 14:43,Depart Scene 14:45,BLS Assessment,Response: Unchanged 15:15,At Destination 15:31,Call Closed Disclaimer v1.1 Copyright 2020 [employer] This EMS Care Summary contains data elements from the applicable legal record (which may be displayed differently). It is designed to provide pertinent information for the following purposes: continuity of care, clinical quality, [address] [address] EMS Patient Care Report Name: PARKER MOREJONSHAWN Room #: [facility]P [facility] [id number] Admission: 06/10/21 Attend Phys: Discharge: 06/10/21 Date of : 73 Report #: [id number] and state data reporting. The complete legal record is available to ED staff and administrators of the receiving hospital in [employer] Patient Tracker. All data is provided "as is."
[2021-06-10 16:10] VITALS: BP 136/54
[2021-06-10 16:11] LABS: BASOPHILS 0.3 % (0.0-2.0); EOSINOPHILS 0.3 % (0.0-3.0); MCH 27.3 pg (26.0-34.0); PLATELET COUNT 266 thou/uL (150-400); RDW 14.8 % (10.5-14.5); WBC 15.6 thou/uL (4.0-11.0)
[2021-06-10 16:13] LABS: ABSOLUTE NEUTROPHILS 13.4 thou/uL (1.4-8.2); MCHC 31.8 g/dL (28.0-37.0); MCV 85.9 fL (80.0-100.0); MONOCYTES 8.7 % (1.0-8.0); POLYS 85.7 % (36.0-66.0); RBC 2.18 mil/uL (4.20-5.00)
[2021-06-10 16:18] LABS: CALCIUM 6.7 mg/dL (8.5-10.1); CREATININE 8.7 mg/dL (0.6-1.0); POTASSIUM 3.3 mmol/L (3.5-5.1)
[2021-06-10 16:20] LABS: HEMATOCRIT 18.7 % (37.0-47.0)
== END 2021-06-10 22:01 ==
LOC: ER 15:18
PROVIDERS: Emergency Medicine
DX: D64.9 Anemia, unspecified (principal); I10 Essential (primary) hypertension; E11.9 Type 2 diabetes mellitus without complications; Z88.5 Allergy status to narcotic agent